=== PATIENT | female | born 1945 | race Caucasian/White ===

== ENCOUNTER 2024-04-06 21:38 | Inpatient (IN) | payer MEDICARE ==
[2024-04-06 22:17] LABS: Basophils # (A) 0.1 k/uL (0-0.2); Basophils % (A) 0 %; Eosinophils # (A) 0.1 k/uL (0-0.7); Eosinophils % (A) 1 %; HGB 12.4 gm/dL (11.4-16.0); Lymphocytes % (A) 7 %; MCH 29.7 pg (25.0-35.0); MCHC 32.8 g/dL (31.0-37.0); MCV 90.5 fL (80.0-100.0); Monocytes # (A) 0.6 k/uL (0-1.0); Monocytes % (A) 4 %; Neutrophils # (A) 12.4 k/uL (1.3-7.7); Neutrophils % (A) 86 %; Platelet Count 166 k/uL (150-450); RDW 14.2 % (11.5-15.5); WBC 14.4 k/uL (3.8-10.6)
[2024-04-06 22:32] LABS: ALT 15 U/L (4-34); AST 31 U/L (14-36); African American GFR (CKD) 47 (>60 ml/min/1.73 sqM); Albumin 3.3 g/dL (3.5-5.0); Alkaline Phosphatase 107 U/L (38-126); Anion Gap 7 mmol/L; Blood Urea Nitrogen 30 mg/dL (7-17); Calcium 8.1 mg/dL (8.4-10.2); Carbon Dioxide 27 mmol/L (22-30); Chloride 100 mmol/L (98-107); Glucose 150 mg/dL (74-99); Non-African American GFR(CKD) 41 (>60 ml/min/1.73 sqM); Potassium 3.9 mmol/L (3.5-5.1); Sodium 134 mmol/L (137-145); Total Bilirubin 1.1 mg/dL (0.2-1.3); Total Protein 5.8 g/dL (6.3-8.2)
[2024-04-06 22:33] LABS: INR 0.9 (<1.2); Partial Thromboplastin Time 27.1 sec (22.0-30.0); Prothrombin Time 10.2 sec (10.0-12.5)
[2024-04-06] MEDS: LACTATED RINGERS 500 ML IV SCH (23:17)
[2024-04-06 23:26] LABS: Influenza A Not Detected (Not Detectd); Influenza B Not Detected (Not Detectd); RSV Detected (Not Detectd)
[2024-04-07] MEDS: LACTATED RINGERS 1,000 ML IV SCH
--- NOTE | 2024-04-07 00:39 | ED ---
SOB HPI - General Chief Complaint: Shortness of Breath Stated Complaint: weakness Time Seen by Provider: 04/06/24 21:41 Source: patient, EMS Mode of arrival: EMS - History of Present Illness Initial Comments: This patient is a 78-year-old woman here to have evaluation for a constellation of symptoms that started a number of days ago. She has had a little bit of cough and has had increasing fatigue and generalized weakness. Patient also found to have low pulse oximetry readings. Denies chest pain. Has not noted fevers. No change in urination or bowel movements MD Complaint: shortness of breath, cough -: days(s) Severity scale (1-10): 0 Consistency: constant Improves With: nothing Worsens With: exertion Known History Of: COPD Associated Symptoms: cough - Related Data Home Medications Medication Instructions Recorded Confirmed Aspirin EC [Ecotrin Low Dose] 81 mg PO DAILY 04/07/24 04/07/24 Atorvastatin [Lipitor] 40 mg PO HS 04/07/24 04/07/24 Cholecalciferol (Vitamin D3) 75 mcg PO DAILY 04/07/24 04/07/24 [Vitamin D3 (3000 Iu)] Labetalol [Trandate] 100 mg PO BID 04/07/24 04/07/24 Omeprazole [PriLOSEC] 20 mg PO BID 04/07/24 04/07/24 Venlafaxine HCl ER [Effexor Xr] 75 mg PO HS 04/07/24 04/07/24 Allergies Allergy/AdvReac Type Severity Reaction Status Date / Time Sulfa (Sulfonamide Allergy Rash/Hives Verified 04/07/24 07:27 Antibiotics) Review of Systems ROS Statement: Those systems with pertinent positive or pertinent negative responses have been documented in the HPI. ROS Other: All systems not noted in ROS Statement are negative. Constitutional: Reports: weakness. Denies: fever, chills Respiratory: Reports: cough, dyspnea, wheezes Cardiovascular: Denies: chest pain, palpitations, edema, syncope Gastrointestinal: Reports: vomiting. Denies: abdominal pain, diarrhea, hematemesis, melena, hematochezia Genitourinary: Denies: dysuria, hematuria Musculoskeletal: Denies: back pain Skin: Denies: rash Neurological: Denies: headache, weakness Past Medical History Past Medical History: CVA/TIA, Renal Disease Past Surgical History: Appendectomy Additional Past Surgical History / Comment(s): Mesenteric bypass Past Psychological History: No Psychological Hx Reported Smoking Status: Former smoker Past Alcohol Use History: None Reported Past Drug Use History: None Reported General Exam General appearance: alert, in no apparent distress Head exam: Present: atraumatic, normocephalic Eye exam: Present: normal appearance ENT exam: Present: mucous membranes dry Neck exam: Present: normal inspection Respiratory exam: Present: wheezes. Absent: respiratory distress, rales, rhonchi, stridor, accessory muscle use Cardiovascular Exam: Present: tachycardia, normal heart sounds. Absent: systolic murmur, diastolic murmur, rubs, gallop GI/Abdominal exam: Present: soft. Absent: distended, tenderness, guarding, rebound, rigid, mass Extremities exam: Present: normal inspection, normal capillary refill. Absent: pedal edema, calf tenderness Back exam: Present: normal inspection Neurological exam: Present: alert. Absent: motor sensory deficit Skin exam: Present: warm, dry, intact, normal color. Absent: rash Course Vital Signs 04/06/24 04/07/24 04/07/24 21:42 00:19 04:33 Temperature 99.5 F 98.3 F Pulse Rate 112 H 98 96 Respiratory 20 18 17 Rate Blood Pressure 135/85 152/82 140/77 O2 Sat by Pulse 91 L 95 94 L Oximetry 04/07/24 04/07/24 04/07/24 08:18 08:24 08:43 Temperature 97.5 F L Pulse Rate 80 82 81 Respiratory 18 Rate Blood Pressure 129/75 O2 Sat by Pulse 96 Oximetry 04/07/24 04/07/24 04/07/24 11:22 11:31 12:00 Temperature Pulse Rate 79 80 78 Respiratory 18 Rate Blood Pressure O2 Sat by Pulse 96 Oximetry 04/07/24 04/07/24 04/07/24 14:54 15:32 15:40 Temperature Pulse Rate 73 61 67 Respiratory 16 Rate Blood Pressure 142/80 O2 Sat by Pulse 97 Oximetry 04/07/24 17:53 Temperature 98.2 F Pulse Rate 78 Respiratory 20 Rate Blood Pressure 140/74 O2 Sat by Pulse 94 L Oximetry Medical Decision Making - Medical Decision Making The patient had chest x-ray that I interpreted as negative for acute infiltrate, pneumothorax, congestive heart failure Was pt. sent in by a medical professional or institution (Dr., PA, APPLE CHECKER, urgent care, hospital, or senior care...) When possible be specific @ -[No] Did you speak to anyone other than the patient for history (EMS, parent, family, police, friend...)? What history was obtained from this source @ -[No] Did you review nursing and triage notes (agree or disagree)? Why? @ -[I reviewed and agree with nursing and triage notes] Were old charts reviewed (outside hosp., previous admission, EMS record, old EKG, old radiological studies, urgent care reports/EKG's, senior care records)? Report findings @ -[No old charts were reviewed] Differential Diagnosis (chest pain, altered mental status, abdominal pain women, abdominal pain men, vaginal bleeding, weakness, fever, dyspnea, syncope, headache, dizziness, GI bleed, back pain, seizure, CVA, palpatations, mental health, musculoskeletal)? @ -[Differential Dyspnea: Coronary syndrome, arrhythmia, tamponade, asthma, COPD, pulmonary embolism, pneumonia, pneumothorax, pulmonary effusion, anaphylaxis, diabetic ketoacidosis, flailed chest, pulmonary contusion, diaphragmatic rupture, anemia, neuromuscular, this is not meant to be an all-inclusive list. EKG interpreted by me (3pts min.). @ -[I interpreted as above] X-rays interpreted by me (1pt min.). @ -[I interpreted as above CT interpreted by me (1pt min.). @ -[None done] U/S interpreted by me (1pt. min.). @ -[None done] What testing was considered but not performed or refused? (CT, X-rays, U/S, labs)? Why? @ -[None] What meds were considered but not given or refused? Why? @ -[None] Did you discuss the management of the patient with other professionals (professionals i.e. JAH Christy, APPLE CHECKER, lab, RT, psych nurse, social media director, check writer, teacher, food safety officer, briefcase sewer)? Give summary @ -[Case discussed with admitting physician and treatment recommendations are incorporated Was smoking cessation discussed for >3mins.? @ -[No] Was critical care preformed (if so, how long)? @ -[Yes, 30 minutes Were there social determinants of health that impacted care today? How? (Homelessness, low income, unemployed, alcoholism, drug addiction, transportation, low edu. Level, literacy, decrease access to med. care, residential, rehab)? @ -[No] Was there de-escalation of care discussed even if they declined (Discuss DNR or withdrawal of care, Hospice)? DNR status @ -[No] What co-morbidities impacted this encounter? (DM, HTN, Smoking, COPD, CAD, Cancer, CVA, ARF, Chemo, Hep., AIDS, mental health diagnosis, sleep apnea, morbid obesity)? @ -[COPD chronic kidney disease Was patient admitted / discharged? Hospital course, mention meds given and route, prescriptions, significant lab abnormalities, going to OR and other pertinent info. @ -[This patient is 78-year-old woman here with dyspnea and found to have RSV infection which appears to have triggered COPD exacerbation. The patient initially manage on sepsis protocol but there does not appear to be an acute bacterial source. the patient also found to have minimal elevation of troponin though this is stable and does appear to represent possible NSTEMI due to COPD exacerbation Undiagnosed new problem with uncertain prognosis? @ -[No] Drug Therapy requiring intensive monitoring for toxicity (Heparin, Nitro, Insulin, Cardizem)? @ -[No] Were any procedures done? @ -[No] Diagnosis/symptom? @ -[Acute RSV infection Acute exacerbation of COPD NSTEMI Acute, or Chronic, or Acute on Chronic? @ -[Acute Uncomplicated (without systemic symptoms) or Complicated (systemic symptoms)? @ -[Complicated by dyspnea and NSTEMI Side effects of treatment? @ -[No] Exacerbation, Progression, or Severe Exacerbation? @ -[No] Poses a threat to life or bodily function? How? (Chest pain, [place], [place], pneumonia, PE, COPD, DKA, ARF, appy, cholecystitis, CVA, Diverticulitis, Homicidal, Suicidal, threat to staff... and all critical care pts) @ -[Yes risk of worsening respiratory failure All treatments are based on ideal body weight as in ED triage - Lab Data Result diagrams: 04/09/24 07:04 04/09/24 07:04 Lab Results 04/06/24 04/06/24 04/06/24 Range/Units 22:02 22:02 22:02 WBC 14.4 H (3.8-10.6) k/uL RBC 4.20 (3.80-5.40) m/uL Hgb 12.4 (11.4-16.0) gm/dL Hct 38.0 (34.0-46.0) % MCV 90.5 (80.0-100.0) fL MCH 29.7 (25.0-35.0) pg MCHC 32.8 (31.0-37.0) g/dL RDW 14.2 (11.5-15.5) % Plt Count 166 (150-450) k/uL MPV 8.0 Neutrophils % 86 % Lymphocytes % 7 % Monocytes % 4 % Eosinophils % 1 % Basophils % 0 % Neutrophils # 12.4 H (1.3-7.7) k/uL Lymphocytes # 1.0 (1.0-4.8) k/uL Monocytes # 0.6 (0-1.0) k/uL Eosinophils # 0.1 (0-0.7) k/uL Basophils # 0.1 (0-0.2) k/uL PT 10.2 (10.0-12.5) sec INR 0.9 (<1.2) APTT 27.1 (22.0-30.0) sec Sodium 134 L (137-145) mmol/L Potassium 3.9 (3.5-5.1) mmol/L Chloride 100 (98-107) mmol/L Carbon Dioxide 27 (22-30) mmol/L Anion Gap 7 mmol/L BUN 30 H (7-17) mg/dL Creatinine 1.26 H (0.52-1.04) mg/dL Est GFR (CKD-EPI)AfAm 47 (>60 ml/min/1.73 sqM) Est GFR (CKD-EPI)NonAf 41 (>60 ml/min/1.73 sqM) Glucose 150 H (74-99) mg/dL POC Glucose (mg/dL) (70-110) mg/dL POC Glu Business Intelligence Manager ID Plasma Lactic Acid Adam (0.7-2.0) mmol/L Calcium 8.1 L (8.4-10.2) mg/dL Total Bilirubin 1.1 (0.2-1.3) mg/dL AST 31 (14-36) U/L ALT 15 (4-34) U/L Alkaline Phosphatase 107 (38-126) U/L Troponin I (0.000-0.034) ng/mL Total Protein 5.8 L (6.3-8.2) g/dL Albumin 3.3 L (3.5-5.0) g/dL Urine Color Urine Appearance (Clear) Urine pH (5.0-8.0) Ur Specific Barclay (1.001-1.035) Urine Protein (Negative) Urine Glucose (UA) (Negative) Urine Ketones (Negative) Urine Blood (Negative) Urine Nitrite (Negative) Urine Bilirubin (Negative) Urine Urobilinogen (<2.0) mg/dL Ur Leukocyte Esterase (Negative) Urine RBC (0-5) /hpf Urine WBC (0-5) /hpf Urine WBC Clumps (None) /hpf Ur Squamous Epith Cells (0-4) /hpf Urine Bacteria (None) /hpf Hyaline Casts (0-2) /lpf Urine Mucus (None) /hpf Influenza Type A (PCR) (Not Detectd) Influenza Type B (PCR) (Not Detectd) RSV (PCR) (Not Detectd) SARS-CoV-2 (PCR) (Not Detectd) 04/06/24 04/06/24 04/06/24 Range/Units 22:02 22:02 22:35 WBC (3.8-10.6) k/uL RBC (3.80-5.40) m/uL Hgb (11.4-16.0) gm/dL Hct (34.0-46.0) % MCV (80.0-100.0) fL MCH (25.0-35.0) pg MCHC (31.0-37.0) g/dL RDW (11.5-15.5) % Plt Count (150-450) k/uL MPV Neutrophils % % Lymphocytes % % Monocytes % % Eosinophils % % Basophils % % Neutrophils # (1.3-7.7) k/uL Lymphocytes # (1.0-4.8) k/uL Monocytes # (0-1.0) k/uL Eosinophils # (0-0.7) k/uL Basophils # (0-0.2) k/uL PT (10.0-12.5) sec INR (<1.2) APTT (22.0-30.0) sec Sodium (137-145) mmol/L Potassium (3.5-5.1) mmol/L Chloride (98-107) mmol/L Carbon Dioxide (22-30) mmol/L Anion Gap mmol/L BUN (7-17) mg/dL Creatinine (0.52-1.04) mg/dL Est GFR (CKD-EPI)AfAm (>60 ml/min/1.73 sqM) Est GFR (CKD-EPI)NonAf (>60 ml/min/1.73 sqM) Glucose (74-99) mg/dL POC Glucose (mg/dL) (70-110) mg/dL POC Glu Business Intelligence Manager ID Plasma Lactic Acid Adam 1.5 (0.7-2.0) mmol/L Calcium (8.4-10.2) mg/dL Total Bilirubin (0.2-1.3) mg/dL AST (14-36) U/L ALT (4-34) U/L Alkaline Phosphatase (38-126) U/L Troponin I 0.094 H* (0.000-0.034) ng/mL Total Protein (6.3-8.2) g/dL Albumin (3.5-5.0) g/dL Urine Color Urine Appearance (Clear) Urine pH (5.0-8.0) Ur Specific Barclay (1.001-1.035) Urine Protein (Negative) Urine Glucose (UA) (Negative) Urine Ketones (Negative) Urine Blood (Negative) Urine Nitrite (Negative) Urine Bilirubin (Negative) Urine Urobilinogen (<2.0) mg/dL Ur Leukocyte Esterase (Negative) Urine RBC (0-5) /hpf Urine WBC (0-5) /hpf Urine WBC Clumps (None) /hpf Ur Squamous Epith Cells (0-4) /hpf Urine Bacteria (None) /hpf Hyaline Casts (0-2) /lpf Urine Mucus (None) /hpf Influenza Type A (PCR) Not Detected (Not Detectd) Influenza Type B (PCR) Not Detected (Not Detectd) RSV (PCR) Detected A (Not Detectd) SARS-CoV-2 (PCR) Not Detected (Not Detectd) 04/07/24 04/07/24 04/07/24 Range/Units 01:10 06:00 07:28 WBC (3.8-10.6) k/uL RBC (3.80-5.40) m/uL Hgb (11.4-16.0) gm/dL Hct (34.0-46.0) % MCV (80.0-100.0) fL MCH (25.0-35.0) pg MCHC (31.0-37.0) g/dL RDW (11.5-15.5) % Plt Count (150-450) k/uL MPV Neutrophils % % Lymphocytes % % Monocytes % % Eosinophils % % Basophils % % Neutrophils # (1.3-7.7) k/uL Lymphocytes # (1.0-4.8) k/uL Monocytes # (0-1.0) k/uL Eosinophils # (0-0.7) k/uL Basophils # (0-0.2) k/uL PT (10.0-12.5) sec INR (<1.2) APTT (22.0-30.0) sec Sodium (137-145) mmol/L Potassium (3.5-5.1) mmol/L Chloride (98-107) mmol/L Carbon Dioxide (22-30) mmol/L Anion Gap mmol/L BUN (7-17) mg/dL Creatinine (0.52-1.04) mg/dL Est GFR (CKD-EPI)AfAm (>60 ml/min/1.73 sqM) Est GFR (CKD-EPI)NonAf (>60 ml/min/1.73 sqM) Glucose (74-99) mg/dL POC Glucose (mg/dL) 268 H (70-110) mg/dL POC Glu Business Intelligence Manager ID Otis Chikis Plasma Lactic Acid Adam (0.7-2.0) mmol/L Calcium (8.4-10.2) mg/dL Total Bilirubin (0.2-1.3) mg/dL AST (14-36) U/L ALT (4-34) U/L Alkaline Phosphatase (38-126) U/L Troponin I 0.103 H* (0.000-0.034) ng/mL Total Protein (6.3-8.2) g/dL Albumin (3.5-5.0) g/dL Urine Color Yellow Urine Appearance Clear (Clear) Urine pH 5.5 (5.0-8.0) Ur Specific Barclay 1.019 (1.001-1.035) Urine Protein 1+ H (Negative) Urine Glucose (UA) Negative (Negative) Urine Ketones Negative (Negative) Urine Blood Moderate H (Negative) Urine Nitrite Positive H (Negative) Urine Bilirubin Negative (Negative) Urine Urobilinogen 2.0 (<2.0) mg/dL Ur Leukocyte Esterase Large H (Negative) Urine RBC 2 (0-5) /hpf Urine WBC 31 H (0-5) /hpf Urine WBC Clumps Rare H (None) /hpf Ur Squamous Epith Cells 1 (0-4) /hpf Urine Bacteria Many H (None) /hpf Hyaline Casts 2 (0-2) /lpf Urine Mucus Occasional H (None) /hpf Influenza Type A (PCR) (Not Detectd) Influenza Type B (PCR) (Not Detectd) RSV (PCR) (Not Detectd) SARS-CoV-2 (PCR) (Not Detectd) - EKG Data -: EKG Interpreted by [place] EKG shows normal: sinus rhythm (With premature ventricular contractions.), axis (Normal), intervals (Normal), QRS complexes (Normal), ST-T waves (normal) Rate: tachycardia (Rate approximately 112 bpm) Disposition Clinical Impression: Acute respiratory failure with hypoxia, Pneumonia, RSV (respiratory syncytial virus infection), NSTEMI (non-ST elevated myocardial infarction) Disposition: ADMITTED IP TO THIS HOSP
[2024-04-07] MEDS ORDERED: NALOXONE 0.4 MG/ML 1 ML VIAL IVP PRN (01:38)
[2024-04-07] MEDS ORDERED: ACETAMINOPHEN TAB 325 MG TAB PO PRN (01:38)
[2024-04-07] MEDS ORDERED: IPRATROPIUM-ALBUTEROL 3 ML NEB INHALATION PRN (01:38)
[2024-04-07] MEDS: predniSONE 20 MG TAB PO SCH (02:43)
--- NOTE | 2024-04-07 02:57 | XR ---
EXAM: XR Chest, 2 Views CLINICAL HISTORY: ITS.REASON XR Reason: Fever TECHNIQUE: Frontal and lateral views of the chest. COMPARISON: No relevant prior studies available. FINDINGS: Lungs: No consolidation or mass. Prominent interstitial markings. Pleural space: No effusion. Heart: No cardiomegaly. Bones/joints: No acute findings. IMPRESSION: Prominent interstitial markings.
[2024-04-07 07:09] LABS: Appearance,Urine Clear (Clear); Bacteria,Urine Many /hpf; Bilirubin,Urine Negative (Negative); Blood,Urine Moderate (Negative); Color,Urine Yellow; Glucose,Urine (UA) Negative (Negative); Hyaline Casts,Urine 2 /lpf (0-2); Ketones,Urine Negative (Negative); Leukocyte Esterase,Urine Large (Negative); Mucus,Urine Occasional /hpf; Nitrite,Urine Positive (Negative); PH, Urine 5.5 (5.0-8.0); Protein,Urine 1+ (Negative); RBC,Urine 2 /hpf (0-5); Specific Gravity,Urine 1.019 (1.001-1.035); Squamous Epithelial Cell,Urine 1 /hpf (0-4); WBC,Urine 31 /hpf (0-5)
[2024-04-07 07:30] LABS: Glucose,Whole Blood 268 mg/dL (70-110)
[2024-04-07] MEDS: IPRATROPIUM-ALBUTEROL 3 ML NEB INHALATION SCH (08:14)
[2024-04-07] MEDS: guaiFENesin 600 MG TABLET.ER PO SCH (08:50)
[2024-04-07] MEDS: methylPREDNISolone SOD SUCCI 125 MG/2 ML VIAL IV SCH (14:41)
[2024-04-07] MEDS: ASPIRIN 81 MG PO SCH (14:46)
--- NOTE | 2024-04-07 14:59 | P.CNPUL ---
History of Present Illness Consult date: 04/07/24 Requesting physician: Medina Rice Reason for consult: dyspnea, cough Chief complaint: Shortness of breath, cough, congestion History of present illness: This is a very pleasant 78-year-old female patient with a known history of gastroesophageal reflux disease, hyperlipidemia, anxiety/depression, CVA/TIA, renal disease. She presented here to the emergency room last evening with a 3- day history of increasing shortness of breath, cough, congestion, wheezing. She is a former smoker who quit back in 2007. On occasional rescue inhaler but very rare. She had recently moved to [place] from [facility]. No PCP currently. Chest x-ray reveals no acute pulmonary process. EKG reveals sinus tachycardia with occasional PVCs.. INR 0.9. Sodium 134. Potassium 3.9. Bicarb 27. BUN 30. Creatinine 1.26. Glucose 268. Troponin 0.094, 0.103. Urinalysis with moderate blood, positive nitrites, high WBCs. Viral screen positive for RSV. She is seen today in consultation in the emergency department. She is currently sitting up on a stretcher. Awake and alert in no acute distress. Maintaining good O2 saturations in the upper 90s on 3 L/min per nasal cannula. She is afebrile. Hemodynamically stable. She has been initiated on DuoNeb and elations, Symbicort, Solu-Medrol. Antibiotics in the form of ceftriaxone. Review of Systems REVIEW OF SYSTEMS: CONSTITUTIONAL: Denies any recent significant weight loss or weight gain. EYES: Denies change in vision. EARS, NOSE, MOUTH, THROAT: Denies headaches, denies sore throat. CARDIOVASCULAR: Denies chest pain, palpitations or syncopal episodes. RESPIRATORY: Positive for shortness of breath, cough, congestion no hemoptysis. GASTROINTESTINAL: Denies change in appetite, denies abdominal pain GENITOURINARY: Denies hematuria, denies infections. MUSKULOSKELETAL: Denies pain, denies swelling. INTEGUMENTARY: Denies rash, denies eczema. NEUROLOGICAL: Denies recent memory loss, no recent seizure activity. PSYCHIATRIC: Denies anxiety, denies depression. HEMATOLOGIC/LYMPHATIC: Denies anemia, denies enlarged lymph nodes. Past Medical History Past Medical History: CVA/TIA, Renal Disease Past Surgical History: Appendectomy Additional Past Surgical History / Comment(s): Mesenteric bypass Past Psychological History: No Psychological Hx Reported Smoking Status: Former smoker Past Alcohol Use History: None Reported Past Drug Use History: None Reported Medications and Allergies Home Medications Medication Instructions Recorded Confirmed Type Aspirin EC [Ecotrin Low Dose] 81 mg PO DAILY 04/07/24 04/07/24 History Atorvastatin [Lipitor] 40 mg PO HS 04/07/24 04/07/24 History Cholecalciferol (Vitamin D3) 75 mcg PO DAILY 04/07/24 04/07/24 History [Vitamin D3 (3000 Iu)] Labetalol [Trandate] 100 mg PO BID 04/07/24 04/07/24 History Omeprazole [PriLOSEC] 20 mg PO BID 04/07/24 04/07/24 History Venlafaxine HCl ER [Effexor Xr] 75 mg PO HS 04/07/24 04/07/24 History Allergies Allergy/AdvReac Type Severity Reaction Status Date / Time Sulfa (Sulfonamide Allergy Rash/Hives Verified 04/07/24 07:27 Antibiotics) Physical Exam Vitals: Vital Signs Temp Pulse Resp BP Pulse Ox 04/07/24 12:00 78 18 96 04/07/24 11:31 80 04/07/24 11:22 79 04/07/24 08:43 97.5 F L 81 18 129/75 96 04/07/24 08:24 82 04/07/24 08:18 80 04/07/24 04:33 98.3 F 96 17 140/77 94 L 04/07/24 00:19 98 18 152/82 95 04/06/24 21:42 99.5 F 112 H 20 135/85 91 L Intake and Output 04/06/24 04/07/24 04/07/24 22:59 06:59 14:59 Other: Weight 82.554 kg GENERAL EXAM: Alert, very pleasant 78-year-old female, sitting up on the stretcher, on 3 L nasal cannula, fairly comfortable in no apparent distress. HEAD: Normocephalic. EYES: Normal reaction of pupils, equal size. NOSE: Clear with pink turbinates. THROAT: No erythema or exudates. NECK: No masses, no JVD. CHEST: No chest wall deformity. LUNGS: Equal air entry with no crackles, wheeze, rhonchi or dullness. CVS: S1 and S2 normal with no audible murmur, regular rhythm. ABDOMEN: No hepatosplenomegaly, normal bowel sounds, no guarding or rigidity. SPINE: No scoliosis or deformity SKIN: No rashes CENTRAL NERVOUS SYSTEM: No focal deficits, tone is normal in all 4 extremities. EXTREMITIES: There is no peripheral edema. No clubbing, no cyanosis. Peripheral pulses are intact. Results - Laboratory Findings CBC and BMP: 04/06/24 22:02 04/06/24 22:02 PT/INR, D-dimer PT 10.2 sec (10.0-12.5) 04/06/24 22:02 INR 0.9 (<1.2) 04/06/24 22:02 Abnormal lab findings: Abnormal Labs 04/06/24 04/06/24 04/06/24 22:02 22:02 22:02 WBC 14.4 H Neutrophils # 12.4 H Sodium 134 L BUN 30 H Creatinine 1.26 H Glucose 150 H POC Glucose (mg/dL) Calcium 8.1 L Troponin I 0.094 H* Total Protein 5.8 L Albumin 3.3 L Urine Protein Urine Blood Urine Nitrite Ur Leukocyte Esterase Urine WBC Urine WBC Clumps Urine Bacteria Urine Mucus RSV (PCR) 04/06/24 04/07/24 04/07/24 22:35 01:10 06:00 WBC Neutrophils # Sodium BUN Creatinine Glucose POC Glucose (mg/dL) Calcium Troponin I 0.103 H* Total Protein Albumin Urine Protein 1+ H Urine Blood Moderate H Urine Nitrite Positive H Ur Leukocyte Esterase Large H Urine WBC 31 H Urine WBC Clumps Rare H Urine Bacteria Many H Urine Mucus Occasional H RSV (PCR) Detected A 04/07/24 07:28 WBC Neutrophils # Sodium BUN Creatinine Glucose POC Glucose (mg/dL) 268 H Calcium Troponin I Total Protein Albumin Urine Protein Urine Blood Urine Nitrite Ur Leukocyte Esterase Urine WBC Urine WBC Clumps Urine Bacteria Urine Mucus RSV (PCR) - Diagnostic Findings Chest x-ray: image reviewed Assessment and Plan Assessment: Acute hypoxemic respiratory failure secondary to an acute exacerbation of chronic obstructive pulmonary disease complicated by RSV Acute RSV infection Suspected urinary tract infection History of CVA/TIA Hyperlipidemia Former smoker Gastroesophageal reflux disease History of anxiety/depression Plan: The patient was seen and evaluated Chest x-ray, labs and medications reviewed Initiate DuoNeb inhalations, Symbicort Initiate Solu-Medrol 60 mg every 6 hours Resume her home medications Titrate down the FiO2 as tolerated We will continue to follow and make further recommendations based on her clinical status I have personally seen and examined the patient, performed the documentation and the assessment and plan as written. Number of minutes spent on the visit: 20 Dictation was produced using [employer] dictation software. Please excuse any grammatical, word or spelling errors. Time with Patient: Greater than 30
[2024-04-07] MEDS ORDERED: DEXTROSE 50% SYRINGE 50 ML IVP PRN ×2 (18:10)
[2024-04-07] MEDS: PANTOPRAZOLE 40 MG TABLET PO SCH (18:23)
[2024-04-07 20:38] LABS: Glucose,Whole Blood 188 mg/dL (70-110)
[2024-04-07] MEDS: ATORVASTATIN 40 MG TAB PO SCH (20:47)
[2024-04-07] MEDS: VENLAFAXINE HCL ER 75 MG CAP PO SCH (20:47)
[2024-04-07] MEDS: LABETALOL 100 MG TAB PO SCH (20:47)
[2024-04-07] MEDS: INSULIN ASPART (NovoLOG) 100 UNIT/ML VIAL SQ SCH (20:47)
[2024-04-07] MEDS: SYMBICORT 160-4.5 MCG INHALER INHALATION SCH (21:21)
[2024-04-08 06:09] LABS: Glucose,Whole Blood 170 mg/dL (70-110)
[2024-04-08] MEDS: CHOLECALCIFEROL 25 MCG (1000 IU) TABLET PO SCH (09:12)
--- NOTE | 2024-04-08 11:52 | P.CRDCN ---
History of Present Illness Consult date: 04/08/24 History of present illness: HISTORY OF PRESENTING ILLNESS: 78-year-old female who is known to Dr. Hinojosa for cardiology care. She has prior history of CVA and mesenteric bypass. She presented to the [facility] because of increased worsening shortness of breath. On admission she was noticed to have RSV pneumonia. Cardiology was consulted for elevated tropon in enzymes Admission Cardiac Labs: Troponin 0.094, 0.103. BUN 30, creatinine 1.25, hemoglobin 12.4 Admission testing: EKG shows sinus tachycardia with PVCs Chest x-ray shows hyperinflated lungs with mild interstitial markings. No significant congestion or consolidation REVIEW OF SYSTEMS: 14 point review of system is negative except what is mentioned above in HPI. PHYSICAL EXAMINATION: Neck: Brisk carotid upstroke, no jugular venous distention. Lungs: Mild crackles and ronchi in chest. Heart: Regular rate and rhythm, S1-S2, , no murmur or rub. Abdomen: Soft nontender, positive bowel sounds. Extremities: No edema, intact distal pulses. Neuro: Alert, oritented, no focal deficits. Detailed neuro exam was not performed. ASSESSMENT: # Elevated troponin, likely type II NSTEMI, due to RSV pneumonia and poor renal clearance from CKD # Acute hypoxic respiratory failure due to RSV pneumonia # CKD with solitary left kidney # h/o of CVA # Mesentric bypass surgery. PLAN: Continue aspirin, Lipitor, Continue labetalol 100 mg BID Start IV heparin drip for 48 hours Obtain updated echocardiogram Further recommendations to follow Dennis Nettles MD, FACC, RPVI Thank you for allowing [facility] to participate in this patient's care. Feel free to reach out in case of any followup questions. Past Medical History Past Medical History: CVA/TIA, Renal Disease History of Any Multi-Drug Resistant Organisms: None Reported Past Surgical History: Appendectomy, Cholecystectomy, Tonsillectomy Additional Past Surgical History / Comment(s): Mesenteric bypass, three D&Cs Past Anesthesia/Blood Transfusion Reactions: No Reported Reaction Past Psychological History: No Psychological Hx Reported Smoking Status: Former smoker Past Alcohol Use History: None Reported Past Drug Use History: Marijuana Additional Drug Use History / Comment(s): Occasionally smokes marijauna and CBD. Medications and Allergies Home Medications Medication Instructions Recorded Confirmed Type Aspirin EC [Ecotrin Low Dose] 81 mg PO DAILY 04/07/24 04/07/24 History Atorvastatin [Lipitor] 40 mg PO HS 04/07/24 04/07/24 History Cholecalciferol (Vitamin D3) 75 mcg PO DAILY 04/07/24 04/07/24 History [Vitamin D3 (3000 Iu)] Labetalol [Trandate] 100 mg PO BID 04/07/24 04/07/24 History Omeprazole [PriLOSEC] 20 mg PO BID 04/07/24 04/07/24 History Venlafaxine HCl ER [Effexor Xr] 75 mg PO HS 04/07/24 04/07/24 History Allergies Allergy/AdvReac Type Severity Reaction Status Date / Time Sulfa (Sulfonamide Allergy Rash/Hives Verified 04/07/24 07:27 Antibiotics) Physical Exam Vitals: Vital Signs Temp Pulse Pulse Resp BP BP Pulse Ox 04/08/24 08:00 98.3 F 83 16 146/65 93 L 04/08/24 07:56 93 L 04/08/24 03:11 98.2 F 68 20 158/64 90 L 04/07/24 23:40 97.6 F 68 20 137/72 96 04/07/24 20:00 98.5 F 80 22 180/72 95 04/07/24 18:47 97.9 F 91 20 158/81 97 04/07/24 17:53 98.2 F 78 20 140/74 94 L 04/07/24 15:40 67 04/07/24 15:32 61 04/07/24 14:54 73 16 142/80 97 04/07/24 12:00 78 18 96 Intake and Output 04/07/24 04/08/24 04/08/24 22:59 06:59 14:59 Other: # Voids 0 Weight 82.554 kg Results 04/06/24 22:02 04/06/24 22:02 Current Medications Generic Name Dose Route Start Last Admin Trade Name Freq PRN Reason Stop Dose Admin Acetaminophen 650 mg 04/07/24 01:38 Acetaminophen Tab 325 Mg Tab PO Q4HR PRN Mild Pain or Fever > 100.5 Albuterol/Ipratropium 3 ml 04/07/24 08:00 04/08/24 07:56 Ipratropium-Albuterol 3 Ml Neb INHALATION Not Given RT-QID NATALIE Albuterol/Ipratropium 3 ml 04/07/24 01:38 Ipratropium-Albuterol 3 Ml Neb INHALATION RT-Q2H PRN Shortness Of Breath Or Wheezing Aspirin 81 mg 04/07/24 13:15 04/08/24 09:12 Aspirin 81 Mg PO 81 mg DAILY NATALIE Administration Atorvastatin Calcium 40 mg 04/07/24 21:00 04/07/24 20:47 Atorvastatin 40 Mg Tab PO 40 mg HS NATALIE Administration Budesonide/Formoterol Fumarate 2 puff 04/07/24 20:00 04/08/24 07:56 Symbicort 160-4.5 Mcg Inhaler INHALATION Not Given RT-BID NATALIE Cholecalciferol 75 mcg 04/08/24 09:00 04/08/24 09:12 Cholecalciferol 25 Mcg (1000 Iu) Tablet PO 75 mcg DAILY NATALIE Administration Dextrose/Water 25 ml 04/07/24 18:10 Dextrose 50% Syringe 50 Ml IVP PER PROTOCOL PRN Hypoglycemia Protocol Dextrose/Water 50 ml 04/07/24 18:10 Dextrose 50% Syringe 50 Ml IVP PER PROTOCOL PRN Hypoglycemia Protocol Guaifenesin 600 mg 04/07/24 09:00 04/08/24 09:12 Guaifenesin 600 Mg Tablet.Er PO 600 mg Q12HR NATALIE Administration Lactated Ringer's 1,000 mls @ 75 mls/hr 04/06/24 22:00 04/08/24 04:07 Lactated Ringers IV Not Given .[id number] NATALIE Ceftriaxone Sodium 2 gm/ 50 mls @ 100 mls/hr 04/08/24 09:00 04/08/24 09:12 Sodium Chloride IVPB 100 mls/hr Q24HR NATALIE Administration Protocol Insulin Aspart 0 unit 04/07/24 21:00 04/08/24 06:20 Insulin Aspart (Novolog) 100 Unit/Ml Vial SQ 1 unit ACHS NATALIE Administration Protocol Labetalol HCl 100 mg 04/07/24 21:00 04/08/24 09:19 Labetalol 100 Mg Tab PO 100 mg BID NATALIE Administration Methylprednisolone Sodium Succinate 60 mg 04/07/24 12:00 04/08/24 06:20 Methylprednisolone Sod Succi 125 Mg/2 Ml Vial IV 60 mg Q6HR NATALIE Administration Naloxone HCl 0.2 mg 04/07/24 01:38 Naloxone 0.4 Mg/Ml 1 Ml Vial IVP Q2M PRN Opioid Reversal Pantoprazole Sodium 40 mg 04/07/24 17:30 04/08/24 06:24 Pantoprazole 40 Mg Tablet PO Not Given [id number] NATALIE Venlafaxine HCl 75 mg 04/07/24 21:00 04/07/24 20:47 Venlafaxine Hcl Er 75 Mg Cap PO 75 mg HS NATALIE Administration Intake and Output 04/07/24 04/08/24 04/08/24 22:59 06:59 14:59 Other: # Voids 0 Weight 82.554 kg 04/06/24 22:02 04/06/24 22:02
--- NOTE | 2024-04-08 12:15 | P.PN ---
Subjective Progress Note Date: 04/08/24 Principal diagnosis: Acute hypoxemic respiratory failure secondary to an acute exacerbation of chronic obstructive pulmonary disease complicated by RSV This is a very pleasant 78-year-old female patient with a known history of gastroesophageal reflux disease, hyperlipidemia, anxiety/depression, CVA/TIA, renal disease. She presented here to the emergency room last evening with a 3- day history of increasing shortness of breath, cough, congestion, wheezing. She is a former smoker who quit back in 2007. On occasional rescue inhaler but very rare. She had recently moved to [place] from [facility]. No PCP currently. Chest x-ray reveals no acute pulmonary process. EKG reveals sinus tachycardia with occasional PVCs.. INR 0.9. Sodium 134. Potassium 3.9. Bica rb 27. BUN 30. Creatinine 1.26. Glucose 268. Troponin 0.094, 0.103. Urinalysis with moderate blood, positive nitrites, high WBCs. Viral screen positive for RSV. She is seen today in consultation in the emergency department. She is currently sitting up on a stretcher. Awake and alert in no acute distress. Maintaining good O2 saturations in the upper 90s on 3 L/min per nasal cannula. She is afebrile. Hemodynamically stable. She has been initiated on DuoNeb and elations, Symbicort, Solu-Medrol. Antibiotics in the form of ceftriaxone. Patient was seen today on 04/08/2024, patient is doing well, feeling much better today compared to how she felt yesterday. Hardly any cough no wheezing, minimal shortness of breath, on room air with O2 saturation 93%, seen by cardiology for elevated troponin, felt to be likely type II non-ST elevation myocardial infarction, no specific recommendation was made by cardiology and did not feel that she needs any further cardiac intervention. Objective - Vital Signs Vital signs: Vital Signs Temp 98.3 F 04/08/24 08:00 Pulse 83 04/08/24 12:00 Resp 16 04/08/24 12:00 BP 146/65 04/08/24 08:00 Pulse Ox 93 L 04/08/24 08:00 FiO2 Intake & Output 04/07/24 04/08/24 04/08/24 18:59 06:59 18:59 Weight 82.554 kg Other: # Voids 0 - Exam GENERAL EXAM: 78-year-old female in no distress on room air HEAD: Normocephalic. EYES: Normal reaction of pupils, equal size. NOSE: Clear with pink turbinates. THROAT: No erythema or exudates. NECK: No masses, no JVD. CHEST: No chest wall deformity. LUNGS: Equal air entry with no crackles, wheeze, rhonchi or dullness. CVS: S1 and S2 normal with no audible murmur, regular rhythm. ABDOMEN: No hepatosplenomegaly, normal bowel sounds, no guarding or rigidity. SKIN: No rashes CENTRAL NERVOUS SYSTEM: No focal deficits, tone is normal in all 4 extremities. EXTREMITIES: There is no peripheral edema. No clubbing, no cyanosis. Peripheral pulses are intact. - Labs CBC & Chem 7: 04/06/24 22:02 04/06/24 22:02 Labs: Abnormal Lab Results - Last 24 Hours (Table) 04/07/24 04/08/24 Range/Units 20:36 06:07 POC Glucose (mg/dL) 188 H 170 H (70-110) mg/dL Microbiology - Last 24 Hours (Table) 04/06/24 21:50 Blood Culture Gram Stain - Preliminary Blood Blood Culture - Preliminary Molecular ID Assessment and Plan Assessment: Impression: Acute hypoxemic respiratory failure secondary to an acute exacerbation of chronic obstructive pulmonary disease complicated by RSV Streptococcus species bacteremia based on the blood cultures noted today, patient is still empirically on Rocephin Suspected urinary tract infection History of CVA/TIA Hyperlipidemia Former smoker Gastroesophageal reflux disease History of anxiety/depression Plan: Continue ceftriaxone awaiting for the final cultures report on her blood and on her urine Continue bronchodilators for underlying COPD Continue methylprednisolone Will continue to follow We will continue to follow and make further recommendations based on her clini jaziel status Time with Patient: Less than 30
[2024-04-08 12:27] LABS: Basophils % (A) 0 %; Eosinophils # (A) 0.1 k/uL (0-0.7); Eosinophils % (A) 1 %; HCT 33.9 % (34.0-46.0); HGB 11.1 gm/dL (11.4-16.0); Lymphocytes # (A) 0.4 k/uL (1.0-4.8); Lymphocytes % (A) 4 %; MCH 29.8 pg (25.0-35.0); MCHC 32.7 g/dL (31.0-37.0); Mean Platelet Volume 8.4; Monocytes # (A) 0.4 k/uL (0-1.0); Monocytes % (A) 3 %; Neutrophils # (A) 9.8 k/uL (1.3-7.7); Neutrophils % (A) 91 %; Platelet Count 214 k/uL (150-450); RBC 3.73 m/uL (3.80-5.40); RDW 13.9 % (11.5-15.5); WBC 10.7 k/uL (3.8-10.6)
[2024-04-08 12:45] LABS: African American GFR (CKD) 63 (>60 ml/min/1.73 sqM); Anion Gap 7 mmol/L; Blood Urea Nitrogen 25 mg/dL (7-17); Calcium 8.8 mg/dL (8.4-10.2); Carbon Dioxide 29 mmol/L (22-30); Chloride 103 mmol/L (98-107); Glucose 145 mg/dL (74-99); Non-African American GFR(CKD) 55 (>60 ml/min/1.73 sqM); Sodium 139 mmol/L (137-145)
[2024-04-08] MEDS ORDERED: LORazepam 2 MG/ML INJ IV PRN (16:10)
--- NOTE | 2024-04-08 16:18 | P.HPIM ---
History of Present Illness H&P Date: 04/07/24 Chief Complaint: Shortness of breath/chest congestion 78-year-old female patient with a known history of gastroesophageal reflux disease, hyperlipidemia, anxiety/depression, CVA/TIA, renal disease. She presented here to the emergency room last evening with a 3-day history of increasing shortness of breath, cough, congestion, wheezing. She is a former smoker who quit back in 2007. On occasional rescue inhaler but very rare. She had recently moved to [place] from [facility]. No PCP currently. -- Chest x-ray reveals no acute pulmonary process. EKG reveals sinus tachycardia with occasional PVCs.. INR 0.9. Sodium 134. Potassium 3.9. Bicarb 27. BUN 30. Creatinine 1.26. Glucose 268. Troponin 0.094, 0.103. Urinalysis with moderate blood, positive nitrites, high WBCs. Viral screen positive for RSV. Review of Systems REVIEW OF SYSTEMS: CONSTITUTIONAL: No fever, no malaise, no fatigue. HEENT: No recent visual problems or hearing problems. Denied any sore throat. CARDIOVASCULAR: No chest pain, orthopnea, PND, no palpitations, no syncope. PULMONARY: No shortness of breath, no cough, no hemoptysis. GASTROINTESTINAL: No diarrhea, no nausea, no vomiting, no abdominal pain. NEUROLOGICAL: No headaches, no weakness, no numbness. HEMATOLOGICAL: Denies any bleeding or petechiae. GENITOURINARY: Denies any burning micturition, frequency, or urgency. MUSCULOSKELETAL/RHEUMATOLOGICAL: Denies any joint pain, swelling, or any muscle pain. ENDOCRINE: Denies any polyuria or polydipsia. The rest of the 14-point review of systems is negative. Past Medical History Past Medical History: CVA/TIA, Renal Disease Past Surgical History: Appendectomy Additional Past Surgical History / Comment(s): Mesenteric bypass Past Psychological History: No Psychological Hx Reported Smoking Status: Former smoker Past Alcohol Use History: None Reported Past Drug Use History: None Reported Medications and Allergies Home Medications Medication Instructions Recorded Confirmed Type Aspirin EC [Ecotrin Low Dose] 81 mg PO DAILY 04/07/24 04/07/24 History Atorvastatin [Lipitor] 40 mg PO HS 04/07/24 04/07/24 History Cholecalciferol (Vitamin D3) 75 mcg PO DAILY 04/07/24 04/07/24 History [Vitamin D3 (3000 Iu)] Labetalol [Trandate] 100 mg PO BID 04/07/24 04/07/24 History Omeprazole [PriLOSEC] 20 mg PO BID 04/07/24 04/07/24 History Venlafaxine HCl ER [Effexor Xr] 75 mg PO HS 04/07/24 04/07/24 History Allergies Allergy/AdvReac Type Severity Reaction Status Date / Time Sulfa (Sulfonamide Allergy Rash/Hives Verified 04/07/24 07:27 Antibiotics) Physical Exam Vitals: Vital Signs Temp Pulse Resp BP Pulse Ox 04/07/24 11:31 80 04/07/24 11:22 79 04/07/24 08:43 97.5 F L 81 18 129/75 96 04/07/24 08:24 82 04/07/24 08:18 80 04/07/24 04:33 98.3 F 96 17 140/77 94 L 04/07/24 00:19 98 18 152/82 95 04/06/24 21:42 99.5 F 112 H 20 135/85 91 L Intake and Output 04/06/24 04/07/24 04/07/24 22:59 06:59 14:59 Other: Weight 82.554 kg Results CBC & Chem 7: 04/08/24 11:52 04/08/24 11:52 Labs: Abnormal Lab Results - Last 24 Hours (Table) 04/06/24 04/06/24 04/06/24 Range/Units 22:02 22:02 22:02 WBC 14.4 H (3.8-10.6) k/uL Neutrophils # 12.4 H (1.3-7.7) k/uL Sodium 134 L (137-145) mmol/L BUN 30 H (7-17) mg/dL Creatinine 1.26 H (0.52-1.04) mg/dL Glucose 150 H (74-99) mg/dL POC Glucose (mg/dL) (70-110) mg/dL Calcium 8.1 L (8.4-10.2) mg/dL Troponin I 0.094 H* (0.000-0.034) ng/mL Total Protein 5.8 L (6.3-8.2) g/dL Albumin 3.3 L (3.5-5.0) g/dL Urine Protein (Negative) Urine Blood (Negative) Urine Nitrite (Negative) Ur Leukocyte Esterase (Negative) Urine WBC (0-5) /hpf Urine WBC Clumps (None) /hpf Urine Bacteria (None) /hpf Urine Mucus (None) /hpf RSV (PCR) (Not Detectd) 04/06/24 04/07/24 04/07/24 Range/Units 22:35 01:10 06:00 WBC (3.8-10.6) k/uL Neutrophils # (1.3-7.7) k/uL Sodium (137-145) mmol/L BUN (7-17) mg/dL Creatinine (0.52-1.04) mg/dL Glucose (74-99) mg/dL POC Glucose (mg/dL) (70-110) mg/dL Calcium (8.4-10.2) mg/dL Troponin I 0.103 H* (0.000-0.034) ng/mL Total Protein (6.3-8.2) g/dL Albumin (3.5-5.0) g/dL Urine Protein 1+ H (Negative) Urine Blood Moderate H (Negative) Urine Nitrite Positive H (Negative) Ur Leukocyte Esterase Large H (Negative) Urine WBC 31 H (0-5) /hpf Urine WBC Clumps Rare H (None) /hpf Urine Bacteria Many H (None) /hpf Urine Mucus Occasional H (None) /hpf RSV (PCR) Detected A (Not Detectd) 04/07/24 Range/Units 07:28 WBC (3.8-10.6) k/uL Neutrophils # (1.3-7.7) k/uL Sodium (137-145) mmol/L BUN (7-17) mg/dL Creatinine (0.52-1.04) mg/dL Glucose (74-99) mg/dL POC Glucose (mg/dL) 268 H (70-110) mg/dL Calcium (8.4-10.2) mg/dL Troponin I (0.000-0.034) ng/mL Total Protein (6.3-8.2) g/dL Albumin (3.5-5.0) g/dL Urine Protein (Negative) Urine Blood (Negative) Urine Nitrite (Negative) Ur Leukocyte Esterase (Negative) Urine WBC (0-5) /hpf Urine WBC Clumps (None) /hpf Urine Bacteria (None) /hpf Urine Mucus (None) /hpf RSV (PCR) (Not Detectd) Assessment and Plan Assessment: 1. Acute hypoxemic respiratory failure secondary to an acute exacerbation of chronic obstructive pulmonary disease complicated by RSV -Continue O2 per nasal cannula; plan to wean or titrate as able 2. Acute exacerbation COPD related to acute RSV infection Chest x-ray, labs and medications reviewed Initiate DuoNeb inhalations, Symbicort; Solu-Medrol 60 mg every 6 hours 3. Urinary tract infection; patient has been placed on IV Rocephin; will monitor urine culture and make further recommendations 4. Hyperlipidemia; Lipitor 40 mg p.o. nightly 5. Hypertension; labetalol 100 mg twice daily 6. History of CVA/TIA; continue with home dose of aspirin and Lipitor 7. Gastroesophageal reflux disease; Prilosec 20 mg twice daily 8. History of anxiety/depression; continue home dose of Effexor 75 mg nightly DVT prophylaxis; SCDs CODE STATUS; full code
[2024-04-08] MEDS ORDERED: QUEtiapine 25 MG TAB PO PRN (19:57)
[2024-04-08 20:57] VITALS: BP 174/92; PULSE 70; RESP 18; TEMP 98
--- NOTE | 2024-04-08 22:35 | P.CONS ---
History of Present Illness - Reason for Consult Consult date: 04/08/24 Bacteremia Requesting physician: Delores Ramey - Chief Complaint Shortness of breath x 5 days - History of Present Illness Patient is a 78-year-old female with a past medical history significant for CVA TIA renal disease, hyperlipidemia reflux anxiety former smoker presenting to the hospital for evaluation of increasing shortness of breath and this patient symptom pattern has been getting worse for about 5 days before presentation to the hospital also complaining of shortness of breath the patient also have a cough congestion and weakness patient cough is moderate intensity not bring up some yellow sputum no hemoptysis no pleuritic chest pain did have some nausea no vomiting no abdominal pain no diarrhea patient on presentation to the hospital was running a low-grade fever of 99.5 F patient was tachycardic but not hypotensive mildly hypoxic with O2 sats of 91% currently on room air patient did have a white count of 14.4 with a left shift creatinine is 1.26 troponins are elevated liver enzymes are normal urine was positive tested positive for RSV initial chest x-ray reported prominent interstitial markings patient did have blood cultures drawn which came back positive with Streptococcus pneumoniae prompted this consultation patient had bright congested Rocephin 2 g daily pending evaluation this morning and blood cultures were repeated this morning as well Review of Systems Positive point and negatives has been mentioned in the HPI, complete review of systems was performed and all other systems are negative Past Medical History Past Medical History: CVA/TIA, Renal Disease History of Any Multi-Drug Resistant Organisms: None Reported Past Surgical History: Appendectomy, Cholecystectomy, Tonsillectomy Additional Past Surgical History / Comment(s): Mesenteric bypass, three D&Cs Past Anesthesia/Blood Transfusion Reactions: No Reported Reaction Past Psychological History: No Psychological Hx Reported Smoking Status: Former smoker Past Alcohol Use History: None Reported Past Drug Use History: Marijuana Additional Drug Use History / Comment(s): Occasionally smokes marijauna and CBD. Medications and Allergies Home Medications Medication Instructions Recorded Confirmed Type Aspirin EC [Ecotrin Low Dose] 81 mg PO DAILY 04/07/24 04/07/24 History Atorvastatin [Lipitor] 40 mg PO HS 04/07/24 04/07/24 History Cholecalciferol (Vitamin D3) 75 mcg PO DAILY 04/07/24 04/07/24 History [Vitamin D3 (3000 Iu)] Labetalol [Trandate] 100 mg PO BID 04/07/24 04/07/24 History Omeprazole [PriLOSEC] 20 mg PO BID 04/07/24 04/07/24 History Venlafaxine HCl ER [Effexor Xr] 75 mg PO HS 04/07/24 04/07/24 History Allergies Allergy/AdvReac Type Severity Reaction Status Date / Time Sulfa (Sulfonamide Allergy Rash/Hives Verified 04/07/24 07:27 Antibiotics) Physical Exam Vitals: Vital Signs Temp Pulse Pulse Resp BP BP Pulse Ox 04/08/24 12:00 98.3 F 83 16 133/60 94 L 04/08/24 08:00 98.3 F 83 16 146/65 93 L 04/08/24 07:56 93 L 04/08/24 03:11 98.2 F 68 20 158/64 90 L 04/07/24 23:40 97.6 F 68 20 137/72 96 04/07/24 20:00 98.5 F 80 22 180/72 95 04/07/24 18:47 97.9 F 91 20 158/81 97 04/07/24 17:53 98.2 F 78 20 140/74 94 L 04/07/24 15:40 67 04/07/24 15:32 61 04/07/24 14:54 73 16 142/80 97 Intake and Output 04/07/24 04/08/24 04/08/24 22:59 06:59 14:59 Other: # Voids 0 Weight 82.554 kg GENERAL DESCRIPTION: Elderly female up in bed, no distress. No tachypnea or accessory muscle of respiration use. HEENT: Shows Pallor , no scleral icterus. Oral mucous membrane is dry. NECK: Trachea central, no thyromegaly. LUNGS: Unlabored breathing. Decreased intensity breath sounds no wheeze HEART: S1, S2, regular rate and rhythm. No loud murmur ABDOMEN: Soft, no tenderness , guarding or rigidity, no organomegaly EXTREMITIES: No edema of feet. SKIN: No rash, no masses palpable. NEUROLOGICAL: The patient is awake, alert, oriented x3, mood and affect normal. Results CBC & Chem 7: 04/08/24 11:52 04/08/24 11:52 Labs: Abnormal Lab Results - Last 24 Hours (Table) 04/07/24 04/08/24 Range/Units 20:36 06:07 POC Glucose (mg/dL) 188 H 170 H (70-110) mg/dL Microbiology - Last 24 Hours (Table) 04/06/24 21:50 Blood Culture Gram Stain - Preliminary Blood Blood Culture - Preliminary Molecular ID Assessment and Plan (1) Bacteremia Current Visit: Yes Status: Acute Code(s): R78.81 - BACTEREMIA SNOMED Code(s): 6181249 (2) Pneumonia Current Visit: Yes Status: Acute Code(s): J18.9 - PNEUMONIA, UNSPECIFIED ORGANISM SNOMED Code(s): 081898732 (3) Leukocytosis Current Visit: Yes Status: Acute Code(s): D72.829 - ELEVATED WHITE BLOOD CELL COUNT, UNSPECIFIED SNOMED Code(s): 430489991 Plan: 1patient presented to hospital with increasing shortness of breath which is likely multifactorial in this patient recent diagnosed with RSV infection now with evidence of Streptococcus pneumoniae bacterium which is usually of a pulmonary origin likely concerning for pneumonia. 2blood culture has been to document clearance of bacteremia procalcitonin has been requested. 3sputum for Gram stain culture has been requested. 4Rocephin 2 g daily while waiting for sensitivity to finalize. We will follow on clinical condition and cultures to further adjust medication if needed Thank you for this consultation we will follow the patient along with you Dictation was produced using [employer] dictation software. please excuse any grammatical, word or spelling errors. Time with Patient: Greater than 30
[2024-04-09 07:52] LABS: Basophils % (A) 0 %; Eosinophils % (A) 0 %; HCT 32.5 % (34.0-46.0); HGB 10.8 gm/dL (11.4-16.0); Lymphocytes # (A) 0.8 k/uL (1.0-4.8); Lymphocytes % (A) 8 %; MCH 30.3 pg (25.0-35.0); MCHC 33.2 g/dL (31.0-37.0); Monocytes # (A) 0.8 k/uL (0-1.0); Monocytes % (A) 8 %; Neutrophils # (A) 8.2 k/uL (1.3-7.7); Neutrophils % (A) 83 %; Platelet Count 255 k/uL (150-450); RBC 3.57 m/uL (3.80-5.40); RDW 14.2 % (11.5-15.5); WBC 9.8 k/uL (3.8-10.6)
[2024-04-09 08:19] LABS: African American GFR (CKD) 55 (>60 ml/min/1.73 sqM); Anion Gap 8 mmol/L; Blood Urea Nitrogen 30 mg/dL (7-17); Calcium 8.4 mg/dL (8.4-10.2); Carbon Dioxide 29 mmol/L (22-30); Chloride 102 mmol/L (98-107); Glucose 101 mg/dL (74-99); Non-African American GFR(CKD) 48 (>60 ml/min/1.73 sqM); Potassium 3.3 mmol/L (3.5-5.1); Sodium 139 mmol/L (137-145)
--- NOTE | 2024-04-09 08:47 | CA ---
Transthoracic Echo Report Name: Luma Branham Age: 78 Gender: F : 1945 Exam Date: 04/08/2024 15:02 Exam Location: [facility] Ht (in): 65 Wt (lb): 182 Ordering Physician: Dennis Nettles MD ([id number]) Attending/Referring Phys: Jewish History Professor Jagruti Cordova RDCS Procedure CPT: Indications: nstemi Cardiac Hx: Technical Quality: Good Contrast 1: Total Dose (mL): Contrast 2: Total Dose (mL): MEASUREMENTS (Male / Female) Normal Values 2D ECHO LV Diastolic Diameter PLAX 4.2 cm 4.2 - 5.9 / 3.9 - 5.3 cm LV Systolic Diameter PLAX 2.8 cm IVS Diastolic Thickness 0.7 cm 0.6 - 1.0 / 0.6 - 0.9 cm LVPW Diastolic Thickness 0.7 cm 0.6 - 1.0 / 0.6 - 0.9 cm LV Relative Wall Thickness 0.4 LVOT Diameter 1.8 cm LV Diastolic Volume MOD BP 85.1 cm??? 67 - 155 / 56 - 104 cm??? LV Systolic Volume MOD BP 31.0 cm??? 22 - 58 / 19 - 49 cm??? LV Ejection Fraction MOD BP 63.5 % >= 55 % LV Cardiac Index MOD BP 1864.6 cm???/min???m??? LV Diastolic Volume MOD 4C 85.9 cm??? LV Systolic Volume MOD 4C 37.7 cm??? LV Ejection Fraction MOD 4C 56.1 % LV Cardiac Index MOD 4C 1661.9 cm???/min???m??? LV Diastolic Length 4C 7.6 cm LV Systolic Length 4C 6.6 cm LV Diastolic Volume MOD 2C 77.4 cm??? LV Systolic Volume MOD 2C 22.9 cm??? LV Ejection Fraction MOD 2C 70.4 % LV Cardiac Index MOD 2C 1879.5 cm???/min???m??? LV Diastolic Length 2C 7.0 cm LV Systolic Length 2C 5.9 cm LA Volume 27.8 cm??? 18 - 58 / 22 - 52 cm??? LA Volume Index 14.1 cm???/m??? 16 - 28 cm???/m??? DOPPLER AV Peak Velocity 132.4 cm/s AV Peak Gradient 7.0 mmHg AV Mean Velocity 86.3 cm/s AV Mean Gradient 3.3 mmHg AV Velocity Time Integral 25.6 cm LVOT Peak Velocity 106.7 cm/s LVOT Peak Gradient 4.6 mmHg LVOT Velocity Time Integral 18.8 cm LVOT Stroke Volume 47.7 cm??? LVOT Stroke Volume Index 25.1 ml/m??? LVOT Cardiac Index 1645.5 cm???/min???m??? AV Area Cont Eq vti 1.9 cm??? AV Area Cont Eq pk 2.0 cm??? MV Area PHT 4.8 cm??? Mitral E Point Velocity 71.7 cm/s Mitral A Point Velocity 65.4 cm/s Mitral E to A Ratio 1.1 MV Deceleration Time 157.8 ms TR Peak Velocity 289.0 cm/s TR Peak Gradient 33.4 mmHg Right Atrial Pressure 10.0 mmHg Pulmonary Artery Systolic Pressu 43.4 mmHg Right Ventricular Systolic Press 43.4 mmHg FINDINGS Left Ventricle Left ventricular ejection fraction is estimated at 55-60 %. Left ventricular cavity size normal. Left ventricular wall thickness normal. No obvious regional wall motion abnormalities. Right Ventricle Normal right ventricular size and function. Mild pulmonary hypertension. Right Atrium Mild RA dilatation Left Atrium Mild LA dilatation Mitral Valve Structurally normal mitral valve. No evidence for mitral valve prolapse. No mitral stenosis. Moderate mitral regurgitation. Aortic Valve Trileaflet aortic valve. No aortic valve stenosis or regurgitation. Tricuspid Valve Structurally normal tricuspid valve. No tricuspid stenosis. Moderate tricuspid regurgitation. Pulmonic Valve Pulmonic valve not well visualized. No pulmonic stenosis. No pulmonic regurgitation. Pericardium Trace pericardial effusion. Aorta Normal size aortic root and proximal ascending aorta. CONCLUSIONS Left ventricular ejection fraction is estimated at 55-60 %. No obvious regional wall motion abnormalities. Mild biatrial dilatation Moderate tricuspid regurgitation. Mild to moderate pulmonary hypertension with RVSP 43 mmHg Dilated IVC with more than 50% collapse Previewed by: Dr Dennis Nettles (Electronically Signed) Final Date: 09 April 2024 08:45
--- NOTE | 2024-04-09 09:33 | P.PN ---
Subjective Progress Note Date: 04/08/24 78-year-old female patient with a known history of gastroesophageal reflux disease, hyperlipidemia, anxiety/depression, CVA/TIA, renal disease. She presented here to the emergency room last evening with a 3-day history of increasing shortness of breath, cough, congestion, wheezing. She is a former smoker who quit back in 2007. On occasional rescue inhaler but very rare. She had recently moved to [place] from [facility]. No PCP currently. -- Chest x-ray reveals no acute pulmonary process. EKG reveals sinus tachycardia with occasional PVCs.. INR 0.9. Sodium 134. Potassium 3.9. Bicar b 27. BUN 30. Creatinine 1.26. Glucose 268. Troponin 0.094, 0.103. Urinalysis with moderate blood, positive nitrites, high WBCs. Viral screen positive for RSV. Objective - Vital Signs Vital signs: Vital Signs Temp 98.3 F 04/08/24 08:00 Pulse 83 04/08/24 08:00 Resp 16 04/08/24 08:00 BP 146/65 04/08/24 08:00 Pulse Ox 93 L 04/08/24 08:00 FiO2 Intake & Output 04/07/24 04/08/24 04/08/24 18:59 06:59 18:59 Weight 82.554 kg Other: # Voids 0 - Exam GENERAL EXAM: Alert, very pleasant 78-year-old female, sitting up on the stretcher, on 3 L nasal cannula, fairly comfortable in no apparent distress. HEAD: Normocephalic. EYES: Normal reaction of pupils, equal size. NECK: No masses, no JVD. CHEST: No chest wall deformity. LUNGS: Equal air entry with no crackles, wheeze, rhonchi or dullness. CVS: S1 and S2 normal with no audible murmur, regular rhythm. ABDOMEN: No hepatosplenomegaly, normal bowel sounds, no guarding or rigidity. SKIN: No rashes CENTRAL NERVOUS SYSTEM: No focal deficits, tone is normal in all 4 extremities. EXTREMITIES: There is no peripheral edema. No clubbing, no cyanosis. Peripheral pulses are intact. - Labs CBC & Chem 7: 04/09/24 07:04 04/09/24 07:04 Labs: Abnormal Lab Results - Last 24 Hours (Table) 04/07/24 04/08/24 Range/Units 20:36 06:07 POC Glucose (mg/dL) 188 H 170 H (70-110) mg/dL Microbiology - Last 24 Hours (Table) 04/06/24 21:50 Blood Culture Gram Stain - Preliminary Blood Blood Culture - Preliminary Molecular ID
--- NOTE | 2024-04-09 12:16 | P.PN ---
Subjective Progress Note Date: 04/09/24 Principal diagnosis: Acute hypoxemic respiratory failure secondary to an acute exacerbation of chronic obstructive pulmonary disease complicated by RSV This is a very pleasant 78-year-old female patient with a known history of gastroesophageal reflux disease, hyperlipidemia, anxiety/depression, CVA/TIA, renal disease. She presented here to the emergency room last evening with a 3- day history of increasing shortness of breath, cough, congestion, wheezing. She is a former smoker who quit back in 2007. On occasional rescue inhaler but very rare. She had recently moved to [place] from [facility]. No PCP currently. Chest x-ray reveals no acute pulmonary process. EKG reveals sinus tachycardia with occasional PVCs.. INR 0.9. Sodium 134. Potassium 3.9. Bica rb 27. BUN 30. Creatinine 1.26. Glucose 268. Troponin 0.094, 0.103. Urinalysis with moderate blood, positive nitrites, high WBCs. Viral screen positive for RSV. She is seen today in consultation in the emergency department. She is currently sitting up on a stretcher. Awake and alert in no acute distress. Maintaining good O2 saturations in the upper 90s on 3 L/min per nasal cannula. She is afebrile. Hemodynamically stable. She has been initiated on DuoNeb and elations, Symbicort, Solu-Medrol. Antibiotics in the form of ceftriaxone. Patient was seen today on 04/08/2024, patient is doing well, feeling much better today compared to how she felt yesterday. Hardly any cough no wheezing, minimal shortness of breath, on room air with O2 saturation 93%, seen by cardiology for elevated troponin, felt to be likely type II non-ST elevation myocardial infarction, no specific recommendation was made by cardiology and did not feel that she needs any further cardiac intervention. Patient was seen today on 04/09/2024, patient is feeling great,, as [id number] asking to be discharged home, however unfortunately patient had positive blood cultures showing Streptococcus pneumonia , chest x-ray clearly did not show any evidence of pneumonia, patient presented with acute exacerbation of COPD complicated by RSV and obviously she has streptococcal pneumonia tracheobronchitis based on the fact that her chest x-ray did not truly show pneumonia. At any rate nonetheless the patient will need to be treated with antibiotics for streptococcal bacteremia and she was seen by infectious d isease, has been on Rocephin all along. Looking at the final report on the blood cultures in addition to Streptococcus pneumonia, patient had Streptococcus viridans group this makes the picture a bit more complicated, and infectious disease is addressing this issue presently the patient is on Rocephin clinically patient is doing great, and her clinical findings do not truly match her bacteremia findings. Nonetheless her bacteremia cannot be ignored, and should be considered potentially a serious issue. Blood culture from 04/07 remains negative so far patient had 1 positive culture from 04/06, patient does not have leukocytosis her WBC count today is 9.8 hemoglobin is 10.8 electrolytes are n ormal renal profile is relatively normal. Objective - Vital Signs Vital signs: Vital Signs Temp 98 F 04/08/24 20:00 Pulse 70 04/08/24 20:00 Resp 18 04/09/24 08:00 BP 174/92 04/08/24 20:00 Pulse Ox 92 L 04/08/24 20:00 FiO2 Intake & Output 04/08/24 04/09/24 04/09/24 18:59 06:59 18:59 Intake Total 118 Balance 118 Weight 51.5 kg Intake: Oral 118 - Exam GENERAL EXAM: 78-year-old female in no distress on room air HEAD: Normocephalic. EYES: Normal reaction of pupils, equal size. NOSE: Clear with pink turbinates. THROAT: No erythema or exudates. NECK: No masses, no JVD. CHEST: No chest wall deformity. LUNGS: Equal air entry with no crackles, wheeze, rhonchi or dullness. CVS: S1 and S2 normal with no audible murmur, regular rhythm. ABDOMEN: No hepatosplenomegaly, normal bowel sounds, no guarding or rigidity. SKIN: No rashes CENTRAL NERVOUS SYSTEM: No focal deficits, tone is normal in all 4 extremities. EXTREMITIES: There is no peripheral edema. No clubbing, no cyanosis. Peripheral pulses are intact. - Labs CBC & Chem 7: 04/09/24 07:04 04/09/24 07:04 Labs: Abnormal Lab Results - Last 24 Hours (Table) 04/08/24 04/08/24 04/09/24 Range/Units 11:52 11:52 07:04 WBC 10.7 H (3.8-10.6) k/uL RBC 3.73 L 3.57 L (3.80-5.40) m/uL Hgb 11.1 L 10.8 L (11.4-16.0) gm/dL Hct 33.9 L 32.5 L (34.0-46.0) % Neutrophils # 9.8 H 8.2 H (1.3-7.7) k/uL Lymphocytes # 0.4 L 0.8 L (1.0-4.8) k/uL Potassium (3.5-5.1) mmol/L BUN 25 H (7-17) mg/dL Creatinine (0.52-1.04) mg/dL Glucose 145 H (74-99) mg/dL 04/09/24 Range/Units 07:04 WBC (3.8-10.6) k/uL RBC (3.80-5.40) m/uL Hgb (11.4-16.0) gm/dL Hct (34.0-46.0) % Neutrophils # (1.3-7.7) k/uL Lymphocytes # (1.0-4.8) k/uL Potassium 3.3 L (3.5-5.1) mmol/L BUN 30 H (7-17) mg/dL Creatinine 1.11 H (0.52-1.04) mg/dL Glucose 101 H (74-99) mg/dL Microbiology - Last 24 Hours (Table) 04/06/24 21:50 Blood Culture Gram Stain - Preliminary Blood Blood Culture - Preliminary Streptococcus pneumoniae Streptococcus viridans group Molecular ID 04/07/24 19:09 Blood Culture - Preliminary Blood Assessment and Plan Assessment: Impression: Acute hypoxemic respiratory failure secondary to an acute exacerbation of chronic obstructive pulmonary disease complicated by RSV Acute sepsis with acute streptococcal bacteremia Streptococcus species bacteremia blood cultures came back positive for Streptococcus pneumonia and Streptococcus viridans, patient is on proper antibiotics/Rocephin, ID is addressing that antibiotics coverage. Follow-up blood cultures from 04/07 seems to be negative but the one culture from 04/06 was the one that came positive for strep pneumonia and strep viridans. Suspected urinary tract infection, apparently the patient did not have urine cultures, although the urinalysis showed positive leukocyte esterase and there was evidence of pyuria and bacteriuria. History of CVA/TIA Hyperlipidemia Former smoker Gastroesophageal reflux disease History of anxiety/depression Plan: Continue ceftriaxone Continue bronchodilators for underlying COPD Continue methylprednisolone Will continue to follow Infectious disease to address bacteremia and antibiotics. We will continue to follow and make further recommendations based on her clinical status Time with Patient: Less than 30
--- NOTE | 2024-04-09 14:32 | P.PN ---
Subjective Progress Note Date: 04/09/24 78-year-old female patient with a known history of gastroesophageal reflux disease, hyperlipidemia, anxiety/depression, CVA/TIA, renal disease. She presented here to the emergency room last evening with a 3-day history of increasing shortness of breath, cough, congestion, wheezing. She is a former smoker who quit back in 2007. On occasional rescue inhaler but very rare. She had recently moved to [place] from [facility]. No PCP currently. -- Chest x-ray reveals no acute pulmonary process. EKG reveals sinus tachycardia with occasional PVCs.. INR 0.9. Sodium 134. Potassium 3.9. Bicar b 27. BUN 30. Creatinine 1.26. Glucose 268. Troponin 0.094, 0.103. Urinalysis with moderate blood, positive nitrites, high WBCs. Viral screen positive for RSV. 04/09/2024 -- patient is seen and evaluated in room at bedside; family is present in the room; eager to be discharged home - positive blood cultures showing Streptococcus pneumonia , chest x-ray clearly did not show any evidence of pneumonia, patient presented with acute exacerbation of COPD complicated by RSV and obviously she has streptococcal pneumonia tracheobronchitis based on the fact that her chest x-ray did not truly show pneumonia. - patient will need to be treated with antibiotics for streptococcal bacteremia and she was seen by infectious disease, has been on Rocephin all along. - final report on the blood cultures in addition to Streptococcus pneumonia, patient had Streptococcus viridans group; infectious disease is addressing this issue presently the patient is on Rocephin clinically patient is doing great, and her clinical findings do not truly match her bacteremia findings. -Patient remains on IV Rocephin; further recommendations pending from ID Objective - Vital Signs Vital signs: Vital Signs Temp 98 F 04/08/24 20:00 Pulse 70 04/08/24 20:00 Resp 18 04/09/24 08:00 BP 174/92 04/08/24 20:00 Pulse Ox 92 L 04/08/24 20:00 FiO2 Intake & Output 04/08/24 04/09/24 04/09/24 18:59 06:59 18:59 Intake Total 118 Balance 118 Weight 51.5 kg Intake: Oral 118 - Exam GENERAL EXAM: Alert, very pleasant 78-year-old female, sitting up on the stretcher, on 3 L nasal cannula, fairly comfortable in no apparent distress. HEAD: Normocephalic. EYES: Normal reaction of pupils, equal size. NECK: No masses, no JVD. CHEST: No chest wall deformity. LUNGS: Equal air entry with no crackles, wheeze, rhonchi or dullness. CVS: S1 and S2 normal with no audible murmur, regular rhythm. ABDOMEN: No hepatosplenomegaly, normal bowel sounds, no guarding or rigidity. SKIN: No rashes CENTRAL NERVOUS SYSTEM: No focal deficits, tone is normal in all 4 extremities. EXTREMITIES: There is no peripheral edema. No clubbing, no cyanosis. Periph eral pulses are intact. - Labs CBC & Chem 7: 04/09/24 07:04 04/09/24 07:04 Labs: Abnormal Lab Results - Last 24 Hours (Table) 04/08/24 04/08/24 04/09/24 Range/Units 11:52 11:52 07:04 WBC 10.7 H (3.8-10.6) k/uL RBC 3.73 L 3.57 L (3.80-5.40) m/uL Hgb 11.1 L 10.8 L (11.4-16.0) gm/dL Hct 33.9 L 32.5 L (34.0-46.0) % Neutrophils # 9.8 H 8.2 H (1.3-7.7) k/uL Lymphocytes # 0.4 L 0.8 L (1.0-4.8) k/uL Potassium (3.5-5.1) mmol/L BUN 25 H (7-17) mg/dL Creatinine (0.52-1.04) mg/dL Glucose 145 H (74-99) mg/dL 04/09/24 Range/Units 07:04 WBC (3.8-10.6) k/uL RBC (3.80-5.40) m/uL Hgb (11.4-16.0) gm/dL Hct (34.0-46.0) % Neutrophils # (1.3-7.7) k/uL Lymphocytes # (1.0-4.8) k/uL Potassium 3.3 L (3.5-5.1) mmol/L BUN 30 H (7-17) mg/dL Creatinine 1.11 H (0.52-1.04) mg/dL Glucose 101 H (74-99) mg/dL Microbiology - Last 24 Hours (Table) 04/07/24 19:09 Blood Culture - Preliminary Blood 04/06/24 21:50 Blood Culture Gram Stain - Preliminary Blood Blood Culture - Preliminary Molecular ID Assessment and Plan Assessment: 1. Acute hypoxemic respiratory failure secondary to an acute exacerbation of chronic obstructive pulmonary disease complicated by RSV -Continue O2 per nasal cannula; plan to wean or titrate as able 2. Acute exacerbation COPD related to acute RSV infection Chest x-ray, labs and medications reviewed Initiate DuoNeb inhalations, Symbicort; Solu-Medrol 60 mg every 6 hours 3. Urinary tract infection; patient has been placed on IV Rocephin; will monitor urine culture and make further recommendations 4. Hyperlipidemia; Lipitor 40 mg p.o. nightly 5. Hypertension; labetalol 100 mg twice daily 6. History of CVA/TIA; continue with home dose of aspirin and Lipitor 7. Gastroesophageal reflux disease; Prilosec 20 mg twice daily 8. History of anxiety/depression; continue home dose of Effexor 75 mg nightly DVT prophylaxis; SCDs CODE STATUS; full code
--- NOTE | 2024-04-09 14:54 | P.PN ---
Subjective Progress Note Date: 04/09/24 Principal diagnosis: Reason for follow-up is Streptococcus pneumonia bacteremia Patient is a 78-year-old female with a past medical history significant for CVA TIA renal disease, hyperlipidemia reflux anxiety former smoker presenting to the hospital for evaluation of increasing shortness of breath patient did have positive blood culture with strep pneumo prompted this consultation On today's evaluation 04/09/2024, Patient is afebrile patient is currently on room air and mention breathing more comfortably denies any chest pain no worsening cough no abdominal pain or diarrhea. Patient white count is 9.8, creatinine is 1.11 blood culture with Streptococcus pneumoniae with sensitivities pending Objective - Vital Signs Vital signs: Vital Signs Temp 98 F 04/08/24 20:00 Pulse 70 04/08/24 20:00 Resp 18 04/09/24 12:20 BP 174/92 04/08/24 20:00 Pulse Ox 92 L 04/08/24 20:00 FiO2 Intake & Output 04/08/24 04/09/24 04/09/24 18:59 06:59 18:59 Intake Total 118 Balance 118 Weight 51.5 kg Intake: Oral 118 - Exam GENERAL DESCRIPTION: An elderly female up in bed in no distress RESPIRATORY SYSTEM: Unlabored breathing , decreased breath sounds at bases HEART: S1 S2 regular rate and rhythm , ABDOMEN: Soft , no tenderness EXTREMITIES: No edema feet - Labs CBC & Chem 7: 04/09/24 07:04 04/09/24 07:04 Labs: Abnormal Lab Results - Last 24 Hours (Table) 04/09/24 04/09/24 Range/Units 07:04 07:04 RBC 3.57 L (3.80-5.40) m/uL Hgb 10.8 L (11.4-16.0) gm/dL Hct 32.5 L (34.0-46.0) % Neutrophils # 8.2 H (1.3-7.7) k/uL Lymphocytes # 0.8 L (1.0-4.8) k/uL Potassium 3.3 L (3.5-5.1) mmol/L BUN 30 H (7-17) mg/dL Creatinine 1.11 H (0.52-1.04) mg/dL Glucose 101 H (74-99) mg/dL Microbiology - Last 24 Hours (Table) 04/06/24 21:50 Blood Culture Gram Stain - Preliminary Blood Blood Culture - Preliminary Streptococcus pneumoniae Streptococcus viridans group Molecular ID 04/07/24 19:09 Blood Culture - Preliminary Blood Assessment and Plan (1) Bacteremia Current Visit: Yes Status: Acute Code(s): R78.81 - BACTEREMIA SNOMED Code(s): 8391289 (2) Pneumonia Current Visit: Yes Status: Acute Code(s): J18.9 - PNEUMONIA, UNSPECIFIED ORGANISM SNOMED Code(s): 143313199 (3) Leukocytosis Current Visit: Yes Status: Acute Code(s): D72.829 - ELEVATED WHITE BLOOD CELL COUNT, UNSPECIFIED SNOMED Code(s): 503837525 Plan: 1patient presented to hospital with increasing shortness of breath which is likely multifactorial in this patient recent diagnosed with RSV infection now with evidence of Streptococcus pneumoniae bacterium which is usually of a pulmonary origin likely concerning for pneumonia. 2blood culture has been repeated to document clearance of bacteremia 3sputum for Gram stain culture has been requested. 4patient will continue Rocephin 2 g daily while waiting for sensitivity to finalize to determine discharge antibiotics. Dictation was produced using [employer] software. please excuse any grammatical, word or spelling errors.
--- NOTE | 2024-06-03 17:34 | P.DS ---
Providers Date of admission: 04/07/24 13:20 Expected date of discharge: 04/09/24 Attending physician: Medina Rice MD Consults: 04/07/24 01:38 Consult Physician Routine Consulting Provider: Barb Romero Consult Reason/Comments: COPD exacerbation. RSV Do you want consulting provider notified?: Yes 04/07/24 13:03 Consult Physician Routine Consulting Provider: Dennis Nettles Consult Reason/Comments: Elevated Trop Do you want consulting provider notified?: Yes 04/07/24 18:12 Consult Physician Routine Consulting Provider: Tristan Richards Consult Reason/Comments: bacteremia Do you want consulting provider notified?: Yes Primary care physician: Physician Nonstaff Hospital Course: 78-year-old female patient with a known history of gastroesophageal reflux disease, hyperlipidemia, anxiety/depression, CVA/TIA, renal disease. She presented here to the emergency room last evening with a 3-day history of increasing shortness of breath, cough, congestion, wheezing. She is a former smoker who quit back in 2007. On occasional rescue inhaler but very rare. She had recently moved to [place] from [facility]. No PCP currently. -- Chest x-ray reveals no acute pulmonary process. EKG reveals sinus tachycardia with occasional PVCs.. INR 0.9. Sodium 134. Potassium 3.9. Bicarb 27. BUN 30. Creatinine 1.26. Glucose 268. Troponin 0.094, 0.103. Urinalysis with moderate blood, positive nitrites, high WBCs. Viral screen positive for RSV. 1. Acute hypoxemic respiratory failure secondary to an acute exacerbation of chronic obstructive pulmonary disease complicated by RSV -Continue O2 per nasal cannula; plan to wean or titrate as able 2. Acute exacerbation COPD related to acute RSV infection Chest x-ray, labs and medications reviewed Initiate DuoNeb inhalations, Symbicort; Solu-Medrol 60 mg every 6 hours 3. Urinary tract infection; patient has been placed on IV Rocephin; will monitor urine culture and make further recommendations 4. Hyperlipidemia; Lipitor 40 mg p.o. nightly 04/09/2024 -- patient is seen and evaluated in room at bedside; family is present in the room; eager to be discharged home - positive blood cultures showing Streptococcus pneumonia , chest x-ray clearly did not show any evidence of pneumonia, patient presented with acute exacerbation of COPD complicated by RSV and obviously she has streptococcal pneumonia tracheobronchitis based on the fact that her chest x-ray did not truly show pneumonia. - patient will need to be treated with antibiotics for streptococcal bacteremia and she was seen by infectious disease, has been on Rocephin all along. - final report on the blood cultures in addition to Streptococcus pneumonia, patient had Streptococcus viridans group; infectious disease is addressing this issue presently the patient is on Rocephin clinically patient is doing great, and her clinical findings do not truly match her bacteremia findings. -Patient remains on IV Rocephin; further recommendations pending from ID 04/09/2024; patient left AMA Plan - Discharge Summary Discharge Rx Participant: Yes New Discharge Prescriptions: No Action Venlafaxine HCl ER [Effexor Xr] 75 mg PO HS Omeprazole [PriLOSEC] 20 mg PO BID Cholecalciferol (Vitamin D3) [Vitamin D3 (3000 Iu)] 75 mcg PO DAILY Aspirin EC [Ecotrin Low Dose] 81 mg PO DAILY Labetalol [Trandate] 100 mg PO BID Atorvastatin [Lipitor] 40 mg PO HS Discharge Medication List Aspirin EC [Ecotrin Low Dose] 81 mg PO DAILY 04/07/24 [History] Atorvastatin [Lipitor] 40 mg PO HS 04/07/24 [History] Cholecalciferol (Vitamin D3) [Vitamin D3 (3000 Iu)] 75 mcg PO DAILY 04/07/24 [History] Labetalol [Trandate] 100 mg PO BID 04/07/24 [History] Omeprazole [PriLOSEC] 20 mg PO BID 04/07/24 [History] Venlafaxine HCl ER [Effexor Xr] 75 mg PO HS 04/07/24 [History] Follow up Appointment(s)/Referral(s): Nonstaff,Physician [Primary Care Provider] - 1-2 days Discharge Disposition: LEFT AGAINST MEDICAL ADVICE
== END 2024-04-09 17:38 | disposition left against medical advice (07) | DRG 189 ==
LOC: EC 21:38 → 3SCARD 04-07 01:41 → OBSVTOIN 04-07 13:20 → 3SCARD 04-07 13:43
PROVIDERS: ADMIT Internal Medicine; ATTEND Internal Medicine
DX: J96.01 Acute respiratory failure with hypoxia (principal); J15.4 Pneumonia due to other streptococci; I21.A1 Myocardial infarction type 2; J12.1 Respiratory syncytial virus pneumonia; J44.0 Chronic obstructive pulmonary disease with (acute) lower respiratory infection; I12.9 Hypertensive chronic kidney disease with stage 1 through stage 4 chronic kidney disease, or unspecified chronic kidney disease; F32.A Depression, unspecified; N18.9 Chronic kidney disease, unspecified; Q60.0 Renal agenesis, unilateral; J44.1 Chronic obstructive pulmonary disease with (acute) exacerbation; R78.81 Bacteremia; N39.0 Urinary tract infection, site not specified; R00.0 Tachycardia, unspecified; F41.9 Anxiety disorder, unspecified; K21.9 Gastro-esophageal reflux disease without esophagitis; I49.3 Ventricular premature depolarization; E78.5 Hyperlipidemia, unspecified; Z79.82 Long term (current) use of aspirin; Z79.899 Other long term (current) drug therapy; Z86.73 Personal history of transient ischemic attack (TIA), and cerebral infarction without residual deficits; Z87.891 Personal history of nicotine dependence; Z20.822 Contact with and (suspected) exposure to COVID-19; Z88.2 Allergy status to sulfonamides
CPT/HCPCS: 36415; 51798; 71046; 80048; 80053; 81001; 83605; 84145; 84484; 85025; 85610; 85730; 87040; 87077; 87186; 87636; 93005; 93306; 94760; 96361; 96365; 96366; 96375; 99291